=== PATIENT | female | born 1985 | race Hispanic/Latino ===

== ENCOUNTER → 2018-10-15 | Outpatient (CLI) | payer OTHER ==
--- NOTE | 2018-10-15 10:55 | REP ---
Chest x-ray: Two views. History: Cough . Comparison study: No comparison . Findings: The lungs are well inflated and free of infiltrate. The pleural angles are sharp. The heart size is normal. Pulmonary vasculature is not increased. No significant bony abnormality is seen. Impression: Negative chest x-ray. Electronically Signed by Evans Gaston MD 10/15/2018 10:47 A
== END ==
LOC: M LRY 09:53
PROVIDERS: ATTEND Physician Assistant
DX: R05 Cough (principal)

== ENCOUNTER → 2019-04-01 | Outpatient (CLI) | payer OTHER ==
--- NOTE | 2019-04-04 22:51 | ECGEPIP ---
[facility] Test Date: 2019-04-01 Pat Name: MARYBETH FU Department: Room: - Gender: Female Patient Transportation Driver: AMY : [id number] Requested By: KIARA Hammer Order Number: [id number] Reading MD: Christopher Padgett Measurements Intervals [place] Rate: 64 P: 42 VA: 182 QRS: QRSD: 113 T: 16 QT: 393 QTc: 406 Interpretive Statements SINUS RHYTHM MARKED LEFT AXIS DEVIATION Left anterior fascicular block No prior tracing in the system Electronically Signed on 04-04-2019 22:51:12 EDT by Christopher Padgett
== END ==
LOC: M EKG 10:41
PROVIDERS: ATTEND Obstetrics & Gynecology
DX: O24.112 Pre-existing type 2 diabetes mellitus, in pregnancy, second trimester (principal); Z3A.13 13 weeks gestation of pregnancy

== ENCOUNTER → 2019-06-13 | Outpatient (CLI) | payer OTHER ==
[~2019-06-13] MED LIST: ACET-839 PO; CETI-36 PO; DOCU100C16 PO; IBUP80TA PO; INSUH10VL SC; INSUN SC; LEVO125T4 PO; NIFE1TAB52 PO; NON-325T5 PO; PERCOCET PO; PRENTAB55 PO; PRENTAB9 PO; PROC1CRE5 TOP; SYNT125T PO
--- NOTE | 2019-06-13 11:06 | REP ---
Clinical: Anatomical evaluation. History of maternal hypothyroidism. Comparison: None . Findings: Examination demonstrates a single live intrauterine in transverse (head to maternal left) presentation. motion is identified by technologist. Placenta is noted posterior and grade zero without evidence for placenta previa or abruption. Amniotic fluid volume is normal. Cervix measures 4.0 cm in length and appears closed. No evidence for nuchal cord. Gestational age by LMP 25 weeks 3 days with CURT 09/23/2019 . Gestational age by current measurements 25 weeks 5 days with CURT 09/21/2019 . FHR equals 121 beats per minute. BPD 6.4 cm 25 weeks 4 days HC 23.7 cm 25 weeks 5 days AC 21.6 cm 26 weeks 0 days FL 4.8 cm 26 weeks 0 days HL 4.1 cm 25 weeks 0 days HC/AC ratio 1.10 Estimated weight 176 grams ( 59th percentile). Anatomical assessment demonstrates normal structures including cranium, choroid plexus, cavum, cerebellum/posterior fossa, facial features, lungs, four-chamber heart/ventricular outflow tracts, diaphragm, stomach, cord insertion/three-vessel cord, kidneys/bladder, spine, and extremities. thyroid gland appears essentially normal for age. Impression: 1. Single live intrauterine in transverse lie demonstrating appropriate interval growth. 2. Normal anatomical assessment. No gross abnormalities are identified. Electronically Signed by Gunner Alfaro MD 06/13/2019 10:57 A
== END ==
LOC: M RAD 09:32
PROVIDERS: ATTEND Obstetrics & Gynecology
DX: O99.282 Endocrine, nutritional and metabolic diseases complicating pregnancy, second trimester (principal); E03.9 Hypothyroidism, unspecified; Z3A.25 25 weeks gestation of pregnancy; O32.2XX0 Maternal care for transverse and oblique lie, not applicable or unspecified

== ENCOUNTER 2019-09-26 15:47 | Inpatient (IN) | payer OTHER ==
[~2019-09-26] VITALS: Ht 152.4 cm; Wt 96.9 kg
[2019-09-26] VITALS (13 sets, daily range): BP systolic 123–187; BP diastolic 60–84
[~2019-09-26 15:47] MED LIST changes: -ACET-839 PO; -NIFE1TAB52 PO; -PRENTAB9 PO
[2019-09-26] MEDS ORDERED: ACET-839 PO (16:18)
[2019-09-26] MEDS ORDERED: PRENTAB9 PO (16:18)
[2019-09-26 16:44] LABS: ALBUMIN 2.9 GM/DL (3.2-5.2); ALT/SGPT 28 U/L (12-78); BILIRUBIN,TOTAL 0.6 MG/DL (0.2-1.0); BLOOD UREA NITROGEN 12 MG/DL (7-18); CALCIUM LEVEL 8.8 MG/DL (8.5-10.1); CARBON DIOXIDE LEVEL 24 MEQ/L (21-32); CHLORIDE LEVEL 110 MEQ/L (98-107); GLOMERULAR FILTRATION RATE > 60.0 (>60); GLUCOSE, FASTING 87 MG/DL (70-100); POTASSIUM SERUM 3.9 MEQ/L (3.5-5.1); SODIUM LEVEL 141 MEQ/L (136-145); TOTAL PROTEIN 6.9 GM/DL (6.4-8.2)
[2019-09-26 16:45] LABS: ALT/SGPT 28 U/L (12-78); BILIRUBIN,TOTAL 0.4 MG/DL (0.2-1.0); CREATININE FOR GFR 0.61 MG/DL (0.55-1.30); GLOMERULAR FILTRATION RATE > 60.0 (>60); LDH LACTATE DEHYDROGENASE 230 U/L (84-246); URIC ACID 5.4 MG/DL (2.6-6.0)
[2019-09-26] MEDS ORDERED: hydrALAZINE INJ 20 MG/ML VIAL IV ONE (17:00)
[2019-09-26 17:03] LABS: BASO % 0.4 % (0.0-1.0); EOS # 0.3 10^3/uL (0.0-0.5); EOS % 3.7 % (0.0-3.0); HEMATOCRIT 33.2 % (36.0-47.0); HEMOGLOBIN 11.3 g/dl (12.0-15.5); LYMPH # 2.6 10^3/uL (1.5-5.0); LYMPH % 30.8 % (24.0-44.0); MEAN CORPUSCULAR HEMOGLOBIN 30.5 pg (27.0-33.0); MEAN CORPUSCULAR VOLUME 89.7 fl (80.0-96.0); MONO # 0.4 10^3/uL (0.0-0.8); MONO % 4.5 % (0.0-5.0); NEUTROPHILS # 5.1 10^3/uL (1.5-8.5); NEUTROPHILS % 60.2 % (36.0-66.0); PLATELET COUNT, AUTOMATED 254 10^3/uL (150-450); WHITE BLOOD COUNT 8.4 10^3/uL (4.0-10.0)
--- NOTE | 2019-09-26 17:14 | HPEPDOC ---
General Date of Admission Sep 26, 2019 at 16:07 Date of Service: Sep 26, 2019 Attending Physician: LATANYA LI DO Chief Complaint The patient is a 34-year-old female s/p RLTCD on 10Dec with elevated BP in clinic. patient reports having intermittent GALVAN for the past 3 days. tylenol helped with the GALVAN. Report not feeling well in general. denies fever/n/v. she was seen in clinic for incision check and BP found to be in 160's-180's/80's. Source: Patient Exam Limitations: No limitations Home Medications Scheduled Acetaminophen (Acetaminophen) 500 Mg Tablet, 1 TAB PO Q6H for PAIN, (Reported) Levothyroxine Sodium (Levothyroxine Sodium) 125 Mcg Tablet, 125 MCG PO DAILY@06 No.137/Iron/Folic Acd ( Vitamin Tablet) 1 Each Tablet, 1 TAB PO DAILY, (Reported) Scheduled PRN Ibuprofen (Ibuprofen) 800 Mg Tablet, 800 MG PO Q8HP PRN for PAIN LEVEL 6-10 Allergies Coded Allergies: No Known Allergies (Unverified , 09/10/19) Family History Significant Family History: Diabetes (diagnosed early in , currently not no medication), Hypertension, Other (obesity) Social History * Smoker: Denies Alcohol: Denies Drugs: denies A-FIB/CHADSVASC A-FIB History Current/History of A-Fib/PAF?: No Current PO Anticoag Therapy: No Age/Risk Factor Scoring CHADSVASC: CHADSVASC Response (Comments) Value Age Risk Factor Age < 65 years old 0 Gender Risk Factor Female 1 Hx of CHF No 0 Hx of HTN Yes 1 Hx of Stroke/TIA/or VTE No 0 Hx of Diabetes Yes 1 Hx of Vascular Disease No 0 Total 3 Treatment Treatment ordered: NONE Physical Examination General Exam: Negative: Alert, Cooperative, No Acute Distress, Mild Distress, Moderate Distress, Severe Distress, Other Chest Exam: Positive: Clear to auscultation (decreased breath sounds); Negative: Normal air movement, Rales, Rhonchi, Wheezing, Diminished, Other Heart Exam: Negative: Rate Normal, Tachycardic, Bradycardic, Regular Rhythm, Irregular Rhythm, Normal S1, Normal S2, Gallops, Murmurs, Rubs, Other Abdomen Exam: Positive: Normal bowel sounds, Soft, Tenderness (appropriate tenderness. right incision corner with [place] drainage. no erythema. no e/o infection) Extremity Exam: Negative: Clubbing, Cyanosis, Edema, Normal pulses, Tenderness, Swelling, Other Vital Signs Vital Signs Date Time Temp Pulse Resp B/P (MAP) Pulse Ox O2 Delivery O2 Flow Rate FiO2 09/26/19 16:53 167/80 09/26/19 16:12 52 Laboratory Data Labs 24H Laboratory Tests 2 09/26/19 16:10: Anion Gap 7L, Glomerular Filtration Rate > 60.0, Uric Acid 5.4, Calcium Level 8.8, Total Bilirubin 0.6, Aspartate Amino Transf (AST/SGOT) 21, Alanine Aminotransferase (ALT/SGPT) 28, Alkaline Phosphatase 96, Lactate Dehydrogenase 230, Total Protein 6.9, Albumin 2.9L, Albumin/Globulin Ratio 0.73L 09/26/19 16:35: CBC/BMP Laboratory Tests 09/26/19 16:10 Assessment/Plan patient is a 33 yo 9 days with severe range BP and GALVAN. Admit to l&d for blood pressure management. -start IV -iv antihypertensive as needed for bp control -cbc, cmp, spot urine protein ordered -start mag if unable to control BP -start oral antihypertensive meds for maintenance therapy once acute BP controlled. -breast pump for patient. -continue with synthroid. -SCDs for cleopatra Li DO Problems (1) Gestational hypertension Plan / VTE VTE Prophylaxis Ordered?: Yes Plan / Urinary Catheter Urinary Catheter: Straight Cath, Place Mcdonald Plan IVF: Initiate Diet: Continue Current Activity: Continue Current LATANYA LI DO Sep 26, 2019 17:14
[2019-09-26 17:19] LABS: CREATININE,RANDOM URINE 40.4 MG/DL; TOTAL PROTEIN,RANDOM URINE 12.3 MG/DL (0.0-12.0)
[2019-09-26] MEDS ORDERED: NIFEdipine 30 MG XL TAB PO SCH (17:30)
[2019-09-26 18:29] LABS: APPEARANCE, URINE CLEAR (CLEAR); BACTERIA, URINE AUTO NEGATIVE (NEGATIVE); BILIRUBIN, URINE AUTO NEGATIVE (NEGATIVE); BLOOD, URINE BLOOD NEGATIVE (NEGATIVE); COLOR, URINE YELLOW (YELLOW); GLUCOSE, URINE (UA) AUTO NEGATIVE (NEGATIVE); KETONE, URINE AUTO NEGATIVE (NEGATIVE); LEUKOCYTE ESTERASE, URINE AUTO NEGATIVE (NEGATIVE); MUCUS, URINE SMALL (NEGATIVE); NITRITE, URINE AUTO NEGATIVE (NEGATIVE); PROTEIN, URINE AUTO NEGATIVE (NEGATIVE); RBC, URINE AUTO 3 /HPF (0-3); SPECIFIC GRAVITY URINE AUTO 1.012 (1.002-1.035); SQUAMOUS EPITHELIAL CELL UR AU 0 /HPF (0-6); UROBILINOGEN, URINE AUTO 0.2 mg/dL (0.0-2.0); WBC, URINE AUTO 2 /HPF (0-3)
[2019-09-26] MEDS: ACETAMINOPHEN TAB 650MG DOSE (2X325MG) PO PRN (23:18)
[2019-09-27 02:00] VITALS: BP 120/58
[2019-09-27] MEDS: ACETAMINOPHEN TAB 650MG DOSE (2X325MG) PO PRN ×2 (03:56→12:19)
[2019-09-27 06:00] VITALS: BP 130/68
[2019-09-27] MEDS ORDERED: LEVOTHYROXINE 125MCG TABLET (0.125MG) PO SCH (06:00)
[2019-09-27 06:49] VITALS: BP 130/68
[2019-09-27] MEDS ORDERED: NIFEdipine 30 MG XL TAB PO SCH ×2 (07:00)
--- NOTE | 2019-09-27 07:25 | IPNPDOC ---
Text Note Date of Service The patient was seen on 09/27/19. NOTE The patient is a 34-year-old female s/p RLTCD on 10Dec pod #10 admitted for blood pressure control HD #2. Patient was given hydralazine 10mg IV on admission followed by Nifedipine 30mg XL. Her BP remained in normal to mild range through out the night. Today reports she has mild GALVAN that is not resolved with tylenol. She reports feeling improved from when she is admitted. Patient report she was started on a BP medication prior to this and had migraine GALVAN from medication. That was stopped and no additional antihypertensive medication was restarted for her. vitals: mild to normal range NAD, laying in bed abd: nd, soft, nt, incision without drainage, no erythema/tenderness le: mild non pitting edema, no erythema/tenderness. a/p patient with GHTN HD #2 for bp control. nifedipine 30mg xl given this am. will add motrin for galvan/pain. Discussed with patient nifedipine may cause her to have a mild GALVAN at the beginning. If symptoms persistent, will need to change antihypertensive medication. disposition pending patient BP and symptoms. VS,Fishbone, I+O VS, Fishbone, I+O Laboratory Tests 09/26/19 16:10 09/26/19 16:56 Vital Signs Date Time Temp Pulse Resp B/P (MAP) Pulse Ox O2 Delivery O2 Flow Rate FiO2 09/27/19 06:49 130/68 09/27/19 06:00 98.9 64 20 97 Room Air I&O- Last 24 Hours up to 6 AM 09/27/19 06:00 Intake Total 200 ml Output Total 1760 ml Balance -1560 ml LATANYA LI DO Sep 27, 2019 07:17
[2019-09-27] MEDS ORDERED: IBUPROFEN 600 MG TAB PO PRN (07:30)
[2019-09-27 10:00] VITALS: BP 130/63
[2019-09-27 14:00] VITALS: BP 134/71
[2019-09-27] MEDS ORDERED: NIFE30TA7 PO (14:50)
--- NOTE | 2019-09-27 15:02 | DS.PDOC ---
Discharge Summary General Date of Admission Sep 26, 2019 at 16:07 Date of Discharge Sep 27, 2019 Discharge Summary HOSPITAL COURSE: Ms. Major is a 34 yo who is s/p uncomplicated RLTCS on 17Sep2019 who was readmitted yesterday afternoon due to severely elevated blood pressure . She has a history of chronic hypertension and was not on any agents during . Her blood pressure was stabilized after IV hydralazine and 30mg ER daily nifedipine. Toxemia labs were unremarkable. Her blood pressures have been normal over the last 12 hours. She had a headache on admission that resolved with tylenol and when her BP was optimized. The remainder of her readmission stay was unremarkable. On her day of discharge (27Sep2019) she met all appropriate discharge criteria. She was ambulating, voiding, tolerating a regular diet, had no further headaches, minimal pain, and denied any RUQ pain, visual changes, or SOB. DISCHARGE MEDICATIONS: Please see below. ALLERGIES: Please see below. PHYSICAL EXAMINATION ON DISCHARGE: VITAL SIGNS: Please see below. GENERAL: AAOX3, sitting up in a chair at bedside, NAD, pleasant and conversant CARDIOVASCULAR EXAMINATION: RRR EXTREMITIES: Trace edema in lower extremities PSYCHIATRIC EXAMINATION: Affect appropriate LABORATORY DATA: Please see below. ACTIVITY: As discussed previously from her discharge after c section DIET: Regular DISCHARGE PLAN: Discharge DISPOSITION: Discharge home on 27Sep2019. DISCHARGE INSTRUCTIONS: 1. Take one nifedipine tablet every morning as prescribed. ITEMS TO FOLLOWUP ON ON OUTPATIENT: 1. Follow up appointment scheduled with Dr. Kent on 30Sep2019 at the [facility] office DISCHARGE CONDITION: Stable. TIME SPENT ON DISCHARGE: Greater than 20 minutes. Kiara Arenas DO Vital Signs/I&Os Vital Signs Date Time Temp Pulse Resp B/P (MAP) Pulse Ox O2 Delivery O2 Flow Rate FiO2 09/27/19 14:00 98.3 77 16 134/71 (92) 98 Room Air I&O- Last 24 Hours up to 6 AM 09/27/19 06:00 Intake Total 200 ml Output Total 1760 ml Balance -1560 ml Laboratory Data Labs 24H Laboratory Tests 2 09/26/19 16:10: Anion Gap 7L, Glomerular Filtration Rate > 60.0, Uric Acid 5.4, Calcium Level 8.8, Total Bilirubin 0.6, Aspartate Amino Transf (AST/SGOT) 21, Alanine Aminotransferase (ALT/SGPT) 28, Alkaline Phosphatase 96, Lactate Dehydrogenase 230, Total Protein 6.9, Albumin 2.9L, Albumin/Globulin Ratio 0.73L 09/26/19 16:34: Urine Color YELLOW, Urine Appearance CLEAR, Urine pH 6.0, Urine Specific [place] 1.012, Urine Protein NEGATIVE, Urine Glucose (Auto)(UA) NEGATIVE, Urine Ketones (Auto) NEGATIVE, Urine Blood NEGATIVE, Urine Nitrite NEGATIVE, Urine Bilirubin NEGATIVE, Urine Urobilinogen 0.2, Urine Leukocyte Esterase (Auto) NEGATIVE, Urine WBC (Auto) 2, Urine RBC (Auto) 3, Urine Hyaline Casts (Auto) 0, Urine Bacteria (Auto) NEGATIVE, Urine Squamous Epithelial Cells 0, Urine Mucus (Auto) SMALL, Urine Sperm (Auto) 09/26/19 16:35: Urine Random Creatinine 40.4, Urine Random Total Protein 12.3H 09/26/19 16:56: Immature Granulocyte % (Auto) 0.4, Neutrophils (%) (Auto) 60.2, Lymphocytes (%) (Auto) 30.8, Monocytes (%) (Auto) 4.5, Eosinophils (%) (Auto) 3.7H, Basophils (%) (Auto) 0.4, Neutrophils # (Auto) 5.1, Lymphocytes # (Auto) 2.6, Monocytes # (Auto) 0.4, Eosinophils # (Auto) 0.3, Basophils # (Auto) 0.0, Nucleated Red Blood Cells % (auto) 0.0 CBC/BMP Laboratory Tests 09/26/19 16:10 09/26/19 16:56 Discharge Medications Scheduled Acetaminophen (Acetaminophen) 500 Mg Tablet, 1 TAB PO Q6H for PAIN, (Reported) Levothyroxine Sodium (Levothyroxine Sodium) 125 Mcg Tablet, 125 MCG PO DAILY@06 Nifedipine (Nifedipine ER) 30 Mg Tab.er.24, 30 MG PO QAM No.137/Iron/Folic Acd ( Vitamin Tablet) 1 Each Tablet, 1 TAB PO DAILY, (Reported) Scheduled PRN Ibuprofen (Ibuprofen) 800 Mg Tablet, 800 MG PO Q8HP PRN for PAIN LEVEL 6-10 Allergies Coded Allergies: No Known Allergies (Unverified , 09/10/19) KIARA ARENAS DO Sep 27, 2019 15:02
== END 2019-09-27 15:40 | disposition home or self-care (01) | DRG 776 ==
LOC: M LDO 15:47 → M LDI 16:07 → M OBS 22:02
PROVIDERS: ADMIT Obstetrics & Gynecology; ATTEND Obstetrics & Gynecology
DX: O10.93 Unspecified pre-existing hypertension complicating the puerperium (principal)